=== PATIENT | male | born 1960 | race Caucasian/White ===

== ENCOUNTER 2016-07-01 20:05 | Observation (INO) | payer OTHER ==
--- NOTE | ~2016-07-01 | HP ---
History And Physical [id number] [place]. [address] NAME: ANY ANGELO : 64 STATUS : ADM Torie PAT#: [id number] AGE: 56 ADM/REG DATE : 07/01/16 MR#: [id number] REPORT SERV DATE: 07/02/16 DICTATED BY: DARIO CASAS DATE: 07/01/16 REPORT STATUS : Draft TRANSCRIBED BY: MODL DATE: 07/01/16 DATE OF ADMISSION: 07/01/2016 CHIEF COMPLAINT: Shortness of breath and cough. HISTORY OF PRESENT ILLNESS: This is a 56-year-old male with a history of COPD, recurrent hypercapnic hypoxic respiratory failure in the past, history of kidney injury requiring temporary hemodialysis in the past, chronic alcohol dependence, and tobacco use who presents to the emergency room at [facility] with the above-mentioned complaint. History was obtained from the patient and his son who is at bedside, and reviewing data available on the PROFICIO system. According to Mr. Angelo, he had been in his usual state of health until about June 24, when he initially . He says at that time, he could not breathe at all and called the ambulance and was taken to [facility]. He was evaluated in the emergency room there, given steroids and discharged home with more steroids. He finished his course of steroids at home and was compliant with his medications and supplemental oxygen therapy, but despite all of this he continued to get worse. In the last 24 hours or so, he simply could not breathe, could not even get up or cross the room without getting severely short of breath. He thought he was having a pneumonia and decided to come to the emergency room here to be evaluated. In the emergency room, initial workup revealed he had acute kidney injury. A chest x-ray showed no infiltrates or effusions. There was no cardiomegaly. Hospitalist Service was asked to admit him for further evaluation and treatment and treatment of his COPD with acute exacerbation. In the emergency room, he had received several treatments without any marked improvement. Although when I went there to evaluate the patient, the patient tells me that he had not received a single treatment after he arrived in the emergency room. In the emergency room at the time of my evaluation, he denied any chest pain or palpitations. He had no recent history of falls or loss of consciousness, although he has been feeling dizzy for several days now. He has had a cough which was essentially productive of clear mucoid sputum without hemoptysis, night sweats, or weight loss. He has not had any fevers or chills at home. No history of nausea, vomiting, or diarrhea, dysuria. No history of hematemesis, hematochezia, or hematuria. No other history of recent travel or exposures. PAST MEDICAL HISTORY: Significant for history of COPD, history of recurrent respiratory failures, history of acute kidney injury in the past requiring temporary hemodialysis, essential hypertension, tobacco and alcohol dependence, chronic pain and peripheral vascular disease. SOCIAL HISTORY: He has about 50 pack year history of smoking, although he says he has not smoked in several months now. His son attests to this. He has also quit drinking according to his son and does not use any nowadays. No other history of recreational drug use. He used to be a [employer] by profession. History And Physical [address] [address] NAME: ANY ANGELO : 64 STATUS : ADM Torie PAT#: [id number] AGE: 56 ADM/REG DATE : 07/01/16 MR#: [id number] REPORT SERV DATE: 07/02/16 DICTATED BY: DARIO CASAS DATE: 07/01/16 REPORT STATUS : Draft TRANSCRIBED BY: ANJEL DATE: 07/01/16 FAMILY HISTORY: Noncontributory. MEDICATIONS: At home were reviewed by me in the chart today and reordered by me. REVIEW OF SYSTEMS: As in history of present illness. All other systems were reviewed in detail and are quite unremarkable. PHYSICAL EXAMINATION: GENERAL: This is a very pleasant 56-year-old, in mild distress due to his wheezing. He is alert, awake, oriented to time, place, and person. Pupils are equal, reacting to light and accommodating. External ocular muscles are intact. Membranes are moist and pink. Sclerae are nonicteric. NECK: Supple with no jugular venous distention, lymphadenopathy, or thyromegaly. LUNGS: Clear to auscultation with no wheezes, rubs, or crackles. HEART: Heart sounds are regular with no murmurs, rubs, or gallops. ABDOMEN: Soft, nontender. Bowel sounds are present. EXTREMITIES: Show no cyanosis, clubbing, or edema. NEUROLOGIC: Grossly intact. No focal sensory or motor deficits. Higher functions appear intact. Gait is not examined. VITAL SIGNS: His vital signs today show temperature of 97.7, pulse 118, respirations 26 a minute, blood pressure is 183/96, oxygen saturations are 93%, and breathing 2 L of oxygen via nasal cannula. LABORATORY DATA: Reviewed on the PROFICIO system showed a sodium of 141, potassium 3.8, chloride 106, CO2 of 29, BUN was 25 with a creatinine of 2.0. This is up from his baseline of 0.8 to 0.9. His glucose was 156. Alkaline phosphatase, ALT, and AST were within normal limits. Troponin was not done today. CBC showed a white blood cell count of 12,700; normal hemoglobin, hematocrit, and platelet count. Urinalysis was not done today. Films of the chest x-ray were reviewed by me on the PACS today and interpreted by me. Per my interpretation, there is normal bony architecture with no cardiomegaly. Lung bates were clear with no lobar consolidations or effusions. An EKG was not performed in the ER. IMPRESSION: 1. Shortness of breath. 2. Chronic obstructive pulmonary disease with acute exacerbation. 3. Acute kidney injury. 4. Hypertension. 5. History of acute kidney injury requiring hemodialysis in the past. 6. Tobacco and alcohol use. 7. Chronic pain. 8. Peripheral vascular disease. PLAN: We will admit Mr. Angelo to the Hospitalist Service with defensive monitoring for a 24- History And Physical [address] [address] NAME: ANY ANGELO : 64 STATUS : ADM Torie PAT#: [id number] AGE: 56 ADM/REG DATE : 07/01/16 MR#: [id number] REPORT SERV DATE: 07/02/16 DICTATED BY: DARIO CASAS DATE: 07/01/16 REPORT STATUS : Draft TRANSCRIBED BY: MODL DATE: 07/01/16 hour observation period. We will maximize his bronchodilator treatments, continue supplemental oxygen therapy, start him on inhaled corticosteroids and IV steroids. Meanwhile, we will start him on fluids for volume resuscitation, check his chemistry, electrolytes and replace as needed. The patient needs to quit smoking and drinking. I did bring this up to the patient in the presence of his son and they told me that he has not had any alcohol in a while nor does he smoke anymore. However, we will watch for DTs. He will be placed on unfractionated heparin for DVT prophylaxis while he is here. Please see today's orders for details. I have discussed above plans with the patient and his son. Questions were answered in detail, and they are agreeable to the recommendations. Hospitalist Service will be following him during his stay here. /ANJEL Dario Casas M.D. / [id number] CC: Dario Casas M.D.
--- NOTE | ~2016-07-01 | DS ---
Discharge Summary [facility] [address] [place]. [address] NAME: ANY PERRY : 64 STATUS : DIS Torie PAT#: [id number] AGE: 56 ADM/REG DATE : 07/01/16 MR#: [id number] REPORT SERV DATE: 07/04/16 DICTATED BY: CASSANDRA EASON DATE: 07/03/16 REPORT STATUS : Draft TRANSCRIBED BY: MODL DATE: 07/03/16 ADMISSION DATE: 07/01/2016 DISCHARGE DATE: 07/03/2016 DISCHARGE DIAGNOSIS: 1. Acute chronic obstructive pulmonary disease exacerbation. 2. Shortness of breath and wheeze. 3. Acute kidney injury, resolved. Most recent creatinine 0.82. 4. Sinus tachycardia. 5. History of tobacco and alcohol use. 6. Hypertension. 7. Likely obstructive sleep apnea. DISCHARGE MEDICATIONS: As follows: Gabapentin 300 mg twice a day; lisinopril 20 mg daily; metoprolol 50 mg twice a day; Symbicort 160/4.5 two puffs inhaled twice a day; Spiriva Respimat 2.5 mcg one puff inhaled three times a day; Meloxicam 7.5 mg daily p.r.n. for arthritis but cautioned to not take this pill if ill with examples of nausea, vomiting or poor appetite; Flonase nasal spray p.r.n. for allergies; albuterol nebulizers 4 times a day p.r.n. for shortness of breath; Ventress 7.5/325 one tablet every four hours p.r.n. for pain; prednisone 40 mg daily for 5 more days. HISTORY OF PRESENT ILLNESS: Pleasant, 56-year-old, male who presented with shortness of breath and cough. Please see the initial H and P of Dr. Dario Smith as patient admitted to the Hospitalist Service for further evaluation and treatment. He was started on aggressive nebulizer therapy, IV steroids, and volume resuscitation. Lab work was ordered and followed. PROCEDURES AND IMAGING DURING THIS ADMISSION: Include an echocardiogram which showed an ejection fraction of 45% with mildly decreased left ventricular systolic function. No endocarditis was seen. HOSPITAL COURSE: The patient was seen by myself beginning the following day on 07/02/2016 after his admission. He was still short of breath and still having some wheezing, inspiratory did not feel quite right. He was tachycardic, sinus with heart rates in the 100s to 120s with fluid resuscitation. His creatinine had improved falling from 2.00 to 1.33. His TAHIRA inhibitor had been placed on hold initially. In review of all his medications, I advised decreasing his gabapentin dosage and decreasing his TAHIRA inhibitor dosage going forward given his risk for acute kidney injury as he has been in the hospital prior for acute kidney injury up and to needing short-term dialysis. He spoke of symptoms including waking up in the morning feeling like he is gasping for air and not sleeping very well. I have instructed him when he follows up with Dr. Camejo his systems mgr this week to explore getting outpatient sleep study. With his current treatment plan he began to feel better. On the morning of 07/03/2016, he was no longer wheezing, had slept better and felt better overall. So he was felt safe for discharge home with the above medication regimen and follow up plan with Dr. Camejo, his systems mgr. The patient was in agreement with this plan going forward and so was discharged home. Questions were answered at bedside. Discharge Summary [address] [address] NAME: ANY PERRY : 64 STATUS : DIS Torie PAT#: [id number] AGE: 56 ADM/REG DATE : 07/01/16 MR#: [id number] REPORT SERV DATE: 07/04/16 DICTATED BY: CASSANDRA EASON DATE: 07/03/16 REPORT STATUS : Draft TRANSCRIBED BY: ANJEL DATE: 07/03/16 KATALINA/ANJEL Cassandra Eason NP / [id number] CC: Giorgio Szymanski
[2016-07-01 19:51] LABS: BASOPHILS 0.1 %; BASOPHILS ABSOLUTE 0.01 10/3/uL (0.0-0.16); EOSINOPHILS ABSOLUTE 0.13 10/3/uL (0.0-0.53); ER CBC TAT 0 Hrs 03 Mins; IMMATURE GRANULOCYTES 0.7 %; IMMATURE GRANULOCYTES ABSOLUTE 0.09 10/3/uL (0.0-0.11); LYMPHOCYTES 18.5 %; LYMPHOCYTES ABSOLUTE 2.34 10/3/uL (0.67-4.30); MEAN CORPUS HGB CONC 33.5 g/dL (32.0-36.0); MEAN CORPUSCULAR HEMOGLOB 33.1 pg (26.0-34.0); MEAN CORPUSCULAR VOLUME 98.7 fL (80-100); MEAN PLATELET VOLUME 9.8 fL (9.2-13.0); MONOCYTES 10.1 %; MONOCYTES ABSOLUTE 1.28 10/3/uL (0.21-1.20); NEUTROPHILS 69.6 %; NEUTROPHILS ABSOLUTE 8.83 10/3/uL (2.02-8.40); PLATELET COUNT 234 10/3/uL (150-400); RBC DISTRIBUTION WIDTH 14.7 % (12.0-16.0); WHITE BLOOD CELLS 12.7 10/3/uL (4.5-10.5)
[2016-07-01 19:53] LABS: HEMATOCRIT 46.6 % (40.0-51.0); HEMOGLOBIN 15.6 g/dL (13.6-17.8); MANUAL DIFF NO %; RED CELL COUNT 4.72 10/6/uL (4.7-6.1)
[~2016-07-01 20:05] MED LIST: ADVIL PO; AUG875 PO; BLOOD PRESSURE RX #1 PO; BLOOD PRESSURE RX #2 PO; CARDCD240 PO; DULERA 200 MCG/13 GM INH; FLONASE NAS; LEVAQUIN750 MG PO; LOP50 PO; MUCINEX600 MG PO; NICODERM C21 MG/241 TOP; P20 PO; PERCOCET1 TA4 PO; PRIN20 PO; PROAIR HFA INH; PROVENTSOL INH; PULRESP1 INH; ROXICODONE PO; SPIRIVA INH; SYMBICORT 160/41 INH INH; SYMBICORT INHALER INH; T PO; TESSALON200 MG PO; VENTOLIN HFA INH; Z-PAK PO
[2016-07-01 20:11] LABS: A/G RATIO 1.1 (0.7-1.9); ALBUMIN 4.1 G/DL (3.5-5.0); ALKALINE PHOSPHATASE 92 U/L (45-117); CALCIUM, SERUM 9.2 MG/DL (8.5-10.4); CHLORIDE, SERUM 106 MMOL/L (96-112); CO2 (CARBON DIOXIDE) 29 MMOL/L (24-34); GLOBULIN 3.6 G/DL (2.5-4.1); SGOT(AST) 14 U/L (5-40); SGPT(ALT) 33 U/L (5-65); SODIUM, SERUM 141 MMOL/L (135-148); TOTAL BILIRUBIN 0.5 MG/DL (0-1.2); TOTAL PROTEIN 7.7 G/DL (6.0-8.5)
[2016-07-01 20:12] LABS: BUN (BLOOD UREA NITROGEN) 25 MG/DL (6-23); GFR AFRICAN AMERICAN 43 ML/MIN (>=60); GFR NON AFRICAN AMERICAN 37 ML/MIN (>=60); GLUCOSE, SERUM 156 MG/DL (60-99); POTASSIUM, SERUM 3.8 MMOL/L (3.5-5.3)
[2016-07-01] MEDS ORDERED: SPIRIVA RESPIMAT INH (20:53)
[2016-07-01] MEDS ORDERED: SYMBICORT 160/41 INH INH (20:53)
[2016-07-01] MEDS ORDERED: MOBIC7.5 PO (20:54)
[2016-07-01] MEDS ORDERED: LOP50 PO (20:54)
[2016-07-01] MEDS ORDERED: NEUR300 PO (20:55)
[2016-07-01] MEDS ORDERED: FLONASE NAS (20:56)
[2016-07-01] MEDS ORDERED: ALBUTEROL0.083 % INH (20:56)
[2016-07-01] MEDS ORDERED: NORCO1 TA2 PO (20:58)
[2016-07-02 05:01] LABS: BASOPHILS 0 %; EOSINOPHILS 0 %; HEMATOCRIT 42.3 % (40.0-51.0); HEMOGLOBIN 13.8 g/dL (13.6-17.8); IMMATURE GRANULOCYTES 0.3 %; IMMATURE GRANULOCYTES ABSOLUTE 0.02 10/3/uL (0.0-0.11); LYMPHOCYTES 7.8 %; LYMPHOCYTES ABSOLUTE 0.46 10/3/uL (0.67-4.30); MEAN CORPUS HGB CONC 32.6 g/dL (32.0-36.0); MEAN CORPUSCULAR HEMOGLOB 32.5 pg (26.0-34.0); MEAN CORPUSCULAR VOLUME 99.8 fL (80-100); MEAN PLATELET VOLUME 9.9 fL (9.2-13.0); MONOCYTES 0.5 %; MONOCYTES ABSOLUTE 0.03 10/3/uL (0.21-1.20); NEUTROPHILS 91.4 %; NEUTROPHILS ABSOLUTE 5.35 10/3/uL (2.02-8.40); PLATELET COUNT 206 10/3/uL (150-400); RBC DISTRIBUTION WIDTH 14.8 % (12.0-16.0); RED CELL COUNT 4.24 10/6/uL (4.7-6.1)
[2016-07-02 05:06] LABS: WHITE BLOOD CELLS 5.9 10/3/uL (4.5-10.5)
[2016-07-02 05:07] LABS: MANUAL DIFF NO %
[2016-07-02 05:30] LABS: BUN (BLOOD UREA NITROGEN) 24 MG/DL (6-23); CALCIUM, SERUM 8.6 MG/DL (8.5-10.4); CHLORIDE, SERUM 107 MMOL/L (96-112); CO2 (CARBON DIOXIDE) 27 MMOL/L (24-34); SODIUM, SERUM 142 MMOL/L (135-148)
[2016-07-02 05:33] LABS: CREATININE 1.33 MG/DL (0.70-1.30); GFR AFRICAN AMERICAN 70 ML/MIN (>=60); GFR NON AFRICAN AMERICAN 60 ML/MIN (>=60); GLUCOSE, SERUM 225 MG/DL (60-99); PHOSPHORUS, SERUM 2.2 MG/DL (2.5-4.5); POTASSIUM, SERUM 4.7 MMOL/L (3.5-5.3)
[2016-07-03 03:19] LABS: BASOPHILS 0 %; EOSINOPHILS 0 %; HEMOGLOBIN 12.2 g/dL (13.6-17.8); IMMATURE GRANULOCYTES 0.3 %; IMMATURE GRANULOCYTES ABSOLUTE 0.06 10/3/uL (0.0-0.11); LYMPHOCYTES 3.6 %; LYMPHOCYTES ABSOLUTE 0.62 10/3/uL (0.67-4.30); MEAN CORPUS HGB CONC 32.7 g/dL (32.0-36.0); MEAN CORPUSCULAR HEMOGLOB 32.8 pg (26.0-34.0); MEAN CORPUSCULAR VOLUME 100.3 fL (80-100); MEAN PLATELET VOLUME 9.7 fL (9.2-13.0); MONOCYTES 2.3 %; NEUTROPHILS 93.8 %; NEUTROPHILS ABSOLUTE 16.31 10/3/uL (2.02-8.40); PLATELET COUNT 178 10/3/uL (150-400); RBC DISTRIBUTION WIDTH 14.9 % (12.0-16.0); RED CELL COUNT 3.72 10/6/uL (4.7-6.1)
[2016-07-03 03:20] LABS: HEMATOCRIT 37.3 % (40.0-51.0); MANUAL DIFF NO %; WHITE BLOOD CELLS 17.4 10/3/uL (4.5-10.5)
[2016-07-03 03:30] LABS: BUN (BLOOD UREA NITROGEN) 21 MG/DL (6-23); CALCIUM, SERUM 8.2 MG/DL (8.5-10.4); CHLORIDE, SERUM 111 MMOL/L (96-112); CO2 (CARBON DIOXIDE) 28 MMOL/L (24-34); POTASSIUM, SERUM 4.7 MMOL/L (3.5-5.3); SODIUM, SERUM 146 MMOL/L (135-148)
[2016-07-03 03:32] LABS: CREATININE 0.82 MG/DL (0.70-1.30); GFR AFRICAN AMERICAN 116 ML/MIN (>=60); GFR NON AFRICAN AMERICAN 100 ML/MIN (>=60); GLUCOSE, SERUM 153 MG/DL (60-99)
[2016-07-03] MEDS ORDERED: P20 PO (10:54)
[2016-09-13] MEDS ORDERED: CARTIA XT240 MG/24 PO (07:38)
[2016-09-13] MEDS ORDERED: NORCO1 TA2 PO (07:38)
[2016-09-13] MEDS ORDERED: ALBUTEROL0.083 % INH (07:39)
[2016-09-14] MEDS ORDERED: V5 PO (15:29)
[2016-09-14] MEDS ORDERED: ZOL50 PO (15:31)
[2016-09-14] MEDS ORDERED: PLAVIX PO (15:40)
== END 2016-07-03 13:40 | disposition home or self-care (01) ==
LOC: ER 20:05 → CDU1 21:06 → CDU2 22:38
PROVIDERS: Emergency Medicine; Internal Medicine; Internal Medicine Pulmonary Disease
DX: J44.1 Chronic obstructive pulmonary disease with (acute) exacerbation (principal); R06.02 Shortness of breath; R00.0 Tachycardia, unspecified; N17.9 Acute kidney failure, unspecified; I10 Essential (primary) hypertension; I73.9 Peripheral vascular disease, unspecified; F17.210 Nicotine dependence, cigarettes, uncomplicated; F10.20 Alcohol dependence, uncomplicated; Z79.899 Other long term (current) drug therapy
CPT/HCPCS: 71020; 80048; 80053; 83735; 84100; 85025; 87040; 87070; 87205; 87449; 93005; 94640; 96372; 96374; 96375; 96376; 99285; A9270-GY; G0378; J0360; J2930

== ENCOUNTER 2016-08-19 04:22 | Inpatient (IN) | payer OTHER ==
--- NOTE | ~2016-08-19 | HP ---
History And Physical [address] [id number] [facility] [place]. [address] NAME: ANY PERRY : 64 STATUS : ADM IN [facility]#: [id number] AGE: 56 ADM/REG DATE : 08/19/16 MR#: [id number] REPORT SERV DATE: 08/19/16 DICTATED BY: ELLIOTT DAIGLE DATE: 08/19/16 REPORT STATUS : Draft TRANSCRIBED BY: MODL DATE: 08/19/16 DATE OF ADMISSION: 08/19/2016 CHIEF COMPLAINT: Respiratory failure. HISTORY OF PRESENT ILLNESS: The patient is a 56-year-old white gentleman with a past medical history of COPD with recurrent respiratory failure, hypertension, and chronic pain, who presents to the ER with respiratory failure. The patient is intubated at the time of my interview and not accompanied by family, so history is minimal. Per the ER and EMS notes, the patient was last in the hospital in June for an acute COPD exacerbation, had been doing well since that time. Then, family reports that over the last 12 to 24 hours, the patient had become increasingly short of breath and lethargic. They called EMS. On EMS arrival, the patient had minimal respiratory effort. They brought him to the ER, where he was immediately intubated for hypercapnic respiratory failure and somnolent. He is now sent to the ICU for further management. PAST MEDICAL HISTORY: 1. COPD. 2. Hypertension. 3. Hyperlipidemia. 4. Chronic pain. 5. Peripheral vascular disease. 6. Obstructive sleep apnea. HOME MEDICATIONS: See medication reconciliation form. ALLERGIES: ASPIRIN. SOCIAL HISTORY: Per the chart. [id number] history of smoking. Remote history of alcohol use. No IV drug abuse. FAMILY HISTORY: Per the chart, negative for coronary disease. REVIEW OF SYSTEMS: Unable to obtain secondary to sedation and intubation. PHYSICAL EXAMINATION: VITAL SIGNS: Temperature 96.9, heart rate 91, respiratory rate 24, blood pressure 158/91. GENERAL: Sedated, intubated. HEENT: Pupils equal, round, and reactive to light. ET tube in place. NECK: Supple. Nontender. No lymphadenopathy. No thyromegaly. No jugular venous distention. LUNGS: Decreased breath sounds bilaterally with end-expiratory wheezes throughout. CARDIOVASCULAR: Regular rate and rhythm. No murmurs, rubs, or gallops. ABDOMEN: Soft, nontender, nondistended. Positive bowel sounds. No hepatosplenomegaly. EXTREMITIES: No cyanosis, clubbing, or edema. History And Physical [address] [address] NAME: ANY PERRY : 64 STATUS : ADM IN PAT#: [id number] AGE: 56 ADM/REG DATE : 08/19/16 MR#: [id number] REPORT SERV DATE: 08/19/16 DICTATED BY: ELLIOTT DAIGLE DATE: 08/19/16 REPORT STATUS : Draft TRANSCRIBED BY: ANJEL DATE: 08/19/16 NEURO: Sedated. PSYCH: Unable to assess. LABS AND IMAGING: Blood gas with a pH of 7.02, pCO2 of 99, PO2 of 545. [place] [address]. Metabolic profile remarkable for a potassium of 5.8, AST of 271. Cardiac markers within normal limits. EKG showed no acute ST changes. Lactic acid 6.3, BNP 225. Chest x-ray shows hyperinflated lungs. There was some mild perivascular airspace disease. ASSESSMENT AND PLAN: The patient is a 56-year-old white gentleman with past medical history of chronic obstructive pulmonary disease with a history of recurrent exacerbations, hypertension, chronic pain, who now presents with acute hypercapnic respiratory failure and acute chronic obstructive pulmonary disease exacerbation. For his acute hypercapnic respiratory failure and acute chronic obstructive pulmonary disease, he is currently on the ventilator. I will continue ventilator management. His repeat ABGs show some mild improvement in his hypercapnia. He currently is not adequately sedated with propofol, so I am adding some Precedex and fentanyl drip. Following sedation, we will repeat another gas in an hour to monitor for improvement in his hypercapnia. When he is on the ventilator, we will provide daily awakening trials to assess his mental status and we will attempt weaning trials when medically appropriate. For his acute chronic obstructive pulmonary disease exacerbation, he will be on bronchodilator protocol. We will also place him on IV Solu- Medrol and empiric antibiotics. We will get a sputum culture as well as procalcitonin and blood cultures x2. We will continue his home antihypertensive medications. The patient will be on heparin for DVT prophylaxis and Protonix for GI prophylaxis. The patient is full code. Total critical care time spent on this patient was 35 minutes. YOANNA/MODL Elliott Daigle MD / [id number] CC: Elliott Daigle MD
--- NOTE | ~2016-08-19 | DS ---
Discharge Summary [facility] [address] [place]. [address] NAME: ANY PERRY : 64 STATUS : DIS IN PAT#: [id number] AGE: 56 ADM/REG DATE : 08/19/16 MR#: [id number] REPORT SERV DATE: 08/23/16 DICTATED BY: JR. SANCHEZ WILLIAM JOHN DATE: 08/22/16 REPORT STATUS : Draft TRANSCRIBED BY: MODTay DATE: 08/22/16 ADMISSION DATE: 08/19/2016 DISCHARGE DATE: 08/22/2016 DISCHARGE DIAGNOSES: Include: 1. Acute respiratory failure. 2. Acute exacerbation of chronic obstructive pulmonary disease. 3. Hypertension. 4. Hyperlipidemia. 5. Peripheral vascular disease. 6. Obstructive sleep apnea. OPERATIONS/PROCEDURES AND TREATMENTS: Include: 1. Intubation and mechanical ventilation. 2. Chest x-ray done, 08/19/2016, which showed satisfactory intubation with likely early heart failure symptoms. 3. KUB done, 08/19/2016, which showed satisfactory NG tube placement. 4. Blood cultures x2 done, 08/19/2016, which showed no growth to date. 5. Sputum culture from tracheal aspirate which grew Streptococcus agalactiae as well as Stenotrophomonas maltophilia. 6. MRSA culture that was negative. DISCHARGE MEDICATIONS: Include: 1. Neurontin 300 mg orally twice a day. 2. Lisinopril 20 mg orally daily. 3. Metoprolol 50 mg orally twice a day. 4. Symbicort 160/4.5 two puffs twice a day. 5. Spiriva/Respimat one dose daily. 6. Proventil metered-dose inhaler, one to two puffs q.4-6 hours as needed. 7. Prednisone 40 mg orally daily for three days, then 20 for three days, 10 for three days, then none. 8. Bactrim Double Strength, one tablet orally twice a day for seven days. HOSPITAL COURSE: The patient is a 56-year-old gentleman with a past history of COPD with recurrent respiratory failure, hypertension, chronic pain, who presented to the emergency room with respiratory failure. The patient was intubated in the emergency room. The patient was most recently hospitalized in June 2016 with similar complaints. The patient apparently had increasing shortness of breath over the 12 and 24 hours prior to presentation. On initial exam, his temperature was 96.9, heart rate 91, respiratory rate 24, blood pressure 158/91. He was sedated and intubated at that time. Exam was overall unremarkable, other than decreased breath sounds with end-expiratory wheezes. The pre- intubation blood gas showed a pH of 7.02, pCO2 of 99, pO2 of 545. CBC with white count of 12,500. Lactic acid was 6.3, BNP of 225. The patient was admitted to the intensive care unit. He was maintained on mechanical ventilation. IV steroids and bronchodilators were instituted, and the patient was extubated Discharge Summary [id number] [place]. [address] NAME: ANY PERRY : 64 STATUS : DIS IN PAT#: [id number] AGE: 56 ADM/REG DATE : 08/19/16 MR#: [id number] REPORT SERV DATE: 08/23/16 DICTATED BY: JR. SANCHEZ WILLIAM JOHN DATE: 08/22/16 REPORT STATUS : Draft TRANSCRIBED BY: ANJEL DATE: 08/22/16 on 08/20/2016 without incident. Since extubation, the patient has done quite well and was transferred to the floor. Cultures from the endotracheal tube secretions did grow Stenotrophomonas; therefore, the empiric Levaquin the patient was on was changed to Bactrim to complete a seven-day course. The remainder of the patient's health problems were stable. He will be discharged home. He will follow up with his primary care provider, Jennifer Ceron at [place]. He will also follow up with Dr. Aguila Camejo of Pulmonary Medicine. For discharge exam and laboratory, please see daily progress note. This discharge took 32 minutes for patient encounter, coordination of care, and documentation. DICTATED BY: Law Sanchez Jr, MD WSCOTTY/ANJEL Law Sanchez Jr, MD / [id number] CC: Law Sanchez Jr, MD [place], CRYSTAL
[2016-08-19 03:50] LABS: ALLENS TEST Pos; BE (BASE EXCESS) -8.2 MEQ/L (0 +/- 2.5); CARBOXYHEMOGLOBIN 3.1 % (0-3); HCO3 (ACTUAL BICARBONATE) 25.1 MEQ/L (23-27); HEMOBLOGIN CONTENT 13.9 G/DL (14-18); INSTRUMENT SERIAL # 8087; METHEMOGLOBIN 0.3 % (0-3); MODE CMV; O2 CONTENT 20.3 VOL% (18-24); OPERATOR ID 33449; PCO2 (CO2 TENSION) 99 MMHG (35-45); PO2 (O2 TENSION) 545 MMHG (79-93); SAMPLE Arterial; TIDAL VOLUME 500 ML; pH 7.02 (7.37-7.43)
[~2016-08-19 04:22] MED LIST changes: +ALBUTEROL0.083 % INH; +MOBIC7.5 PO; +NEUR300 PO; +NORCO1 TA2 PO; +SPIRIVA RESPIMAT INH
[2016-08-19 04:28] LABS: BASOPHILS 0.2 %; BASOPHILS ABSOLUTE 0.02 10/3/uL (0.0-0.16); EOSINOPHILS 0.4 %; EOSINOPHILS ABSOLUTE 0.05 10/3/uL (0.0-0.53); ER CBC TAT 0 Hrs 11 Mins; HEMATOCRIT 40.6 % (40.0-51.0); HEMOGLOBIN 12.9 g/dL (13.6-17.8); IMMATURE GRANULOCYTES 1.2 %; IMMATURE GRANULOCYTES ABSOLUTE 0.15 10/3/uL (0.0-0.11); MEAN CORPUS HGB CONC 31.8 g/dL (32.0-36.0); MEAN CORPUSCULAR HEMOGLOB 32.9 pg (26.0-34.0); MEAN PLATELET VOLUME 9.9 fL (9.2-13.0); MONOCYTES 6.4 %; MONOCYTES ABSOLUTE 0.78 10/3/uL (0.21-1.20); NEUTROPHILS 59.8 %; NEUTROPHILS ABSOLUTE 7.27 10/3/uL (2.02-8.40); RBC DISTRIBUTION WIDTH 15.3 % (12.0-16.0); RED CELL COUNT 3.92 10/6/uL (4.7-6.1); WHITE BLOOD CELLS 12.2 10/3/uL (4.5-10.5)
[2016-08-19 04:29] LABS: MANUAL DIFF NO %; MEAN CORPUSCULAR VOLUME 103.6 fL (80-100); PLATELET COUNT 380 10/3/uL (150-400)
[2016-08-19 04:35] LABS: PROTIME (NOT ORD) 12.8 SEC (12.0-14.5)
[2016-08-19 04:42] LABS: PARTIAL THROMBO TIME 21.7 SEC (22.5-37.2)
[2016-08-19 04:43] LABS: ALBUMIN 3.5 G/DL (3.5-5.0); CALCIUM, SERUM 8.2 MG/DL (8.5-10.4); CHEST PAIN PROFILE TAT 0 Hrs 26 Mins; CHLORIDE, SERUM 109 MMOL/L (96-112); CO2 (CARBON DIOXIDE) 26 MMOL/L (24-34); GFR AFRICAN AMERICAN 79 ML/MIN (>=60); GFR NON AFRICAN AMERICAN 68 ML/MIN (>=60); SGPT(ALT) 123 U/L (5-65); SODIUM, SERUM 145 MMOL/L (135-148); TOTAL BILIRUBIN 0.4 MG/DL (0-1.2); TOTAL PROTEIN 6.9 G/DL (6.0-8.5); TROPONIN I <0.02 NG/ML (<0.05)
[2016-08-19 04:44] LABS: ALKALINE PHOSPHATASE 108 U/L (45-117); BUN (BLOOD UREA NITROGEN) 14 MG/DL (6-23); DIRECT BILIRUBIN < 0.1 MG/DL (0.0-0.4); GLUCOSE, SERUM 200 MG/DL (60-99); INDIRECT BILIRUBIN(NOT ORDER) 0.3 MG/DL (0.1-0.9); POTASSIUM, SERUM 5.8 MMOL/L (3.5-5.3); SGOT(AST) 271 U/L (5-40)
[2016-08-19 04:59] LABS: BE (BASE EXCESS) -2.9 MEQ/L (0 +/- 2.5); CARBOXYHEMOGLOBIN 3.1 % (0-3); HCO3 (ACTUAL BICARBONATE) 26.6 MEQ/L (23-27); HEMOBLOGIN CONTENT 12.3 G/DL (14-18); INSTRUMENT SERIAL # 8087; METHEMOGLOBIN 0.2 % (0-3); MODE CMV; O2 CONTENT 15.1 VOL% (18-24); OPERATOR ID 33449; PCO2 (CO2 TENSION) 71 MMHG (35-45); PO2 (O2 TENSION) 68 MMHG (79-93); SAMPLE Arterial; TIDAL VOLUME 500 ML; pH 7.19 (7.37-7.43)
[2016-08-19 08:44] LABS: PHOSPHORUS, SERUM 3.8 MG/DL (2.5-4.5); POTASSIUM, SERUM 4.4 MMOL/L (3.5-5.3)
[2016-08-19 08:49] LABS: LACTATE 1.5 MMOL/L (0.3-2.4)
[2016-08-19 09:21] LABS: ALLENS TEST Pos; BE (BASE EXCESS) 2.2 MEQ/L (0 +/- 2.5); HCO3 (ACTUAL BICARBONATE) 28.1 MEQ/L (23-27); HEMOBLOGIN CONTENT 12.2 G/DL (14-18); INSTRUMENT SERIAL # 35151; METHEMOGLOBIN 0.5 % (0-3); MODE CMV; OPERATOR ID 35784; PCO2 (CO2 TENSION) 49 MMHG (35-45); PO2 (O2 TENSION) 76 MMHG (79-93); SAMPLE Arterial; TIDAL VOLUME 500 ML; pH 7.38 (7.37-7.43)
[2016-08-19 09:54] LABS: PROCALCITONIN 0.15 ng/mL (<0.5)
[2016-08-19 10:33] LABS: BUN (BLOOD UREA NITROGEN) 15 MG/DL (6-23); CALCIUM, SERUM 8.1 MG/DL (8.5-10.4); CHLORIDE, SERUM 111 MMOL/L (96-112); CO2 (CARBON DIOXIDE) 30 MMOL/L (24-34); CREATININE 0.76 MG/DL (0.70-1.30); GFR AFRICAN AMERICAN 120 ML/MIN (>=60); GFR NON AFRICAN AMERICAN 103 ML/MIN (>=60); POTASSIUM, SERUM 4.3 MMOL/L (3.5-5.3); SODIUM, SERUM 146 MMOL/L (135-148)
[2016-08-19 10:34] LABS: GLUCOSE, SERUM 110 MG/DL (60-99)
[2016-08-19] MEDS ORDERED: DILT-XR240 MG PO (16:13)
[2016-08-19] MEDS ORDERED: PROVHFA INH (16:14)
[2016-08-20 04:34] LABS: HEMATOCRIT 39.1 % (40.0-51.0); HEMOGLOBIN 12.8 g/dL (13.6-17.8); MEAN CORPUS HGB CONC 32.7 g/dL (32.0-36.0); MEAN CORPUSCULAR HEMOGLOB 32.8 pg (26.0-34.0); MEAN PLATELET VOLUME 9.7 fL (9.2-13.0); RBC DISTRIBUTION WIDTH 15.4 % (12.0-16.0); WHITE BLOOD CELLS 8.7 10/3/uL (4.5-10.5)
[2016-08-20 04:35] LABS: DIFFERENTIAL ORDERED Y; MEAN CORPUSCULAR VOLUME 100.3 fL (80-100); PLATELET COUNT 242 10/3/uL (150-400)
[2016-08-20 04:48] LABS: CALCIUM, SERUM 8.7 MG/DL (8.5-10.4); CHLORIDE, SERUM 105 MMOL/L (96-112); CO2 (CARBON DIOXIDE) 31 MMOL/L (24-34); CREATININE 1.13 MG/DL (0.70-1.30); GFR AFRICAN AMERICAN 85 ML/MIN (>=60); GFR NON AFRICAN AMERICAN 73 ML/MIN (>=60); SODIUM, SERUM 143 MMOL/L (135-148)
[2016-08-20 04:51] LABS: BUN (BLOOD UREA NITROGEN) 20 MG/DL (6-23); GLUCOSE, SERUM 179 MG/DL (60-99)
[2016-08-20 04:55] LABS: BAND NEUTROPHILS 2 %; LYMPHOCYTES 29 %; LYMPHOCYTES ABSOLUTE (CALC) 2.52 10/3/uL (0.67-4.30); MACROCYTES 1+ (5-10/OIF) (0-5/OIF); MONOCYTES 6 %; MONOCYTES ABSOLUTE (CALC) 0.52 10/3/uL (0.21-1.20); NEUTROPHILS ABSOLUTE (CALC) 5.66 10/3/uL (2.02-8.40); PLATELET ESTIMATE ADQ (ADEQUATE); SEGMENTED NEUTROPHIL (0) 63 %; TOTAL NUCLEATED CELLS 100
[2016-08-20] MEDS ORDERED: ZESTRIL20 MG PO (10:15)
[2016-08-21 04:43] LABS: BASOPHILS 0 %; EOSINOPHILS 0 %; HEMATOCRIT 40.4 % (40.0-51.0); HEMOGLOBIN 12.8 g/dL (13.6-17.8); IMMATURE GRANULOCYTES 0.3 %; IMMATURE GRANULOCYTES ABSOLUTE 0.04 10/3/uL (0.0-0.11); LYMPHOCYTES 8.3 %; LYMPHOCYTES ABSOLUTE 1.06 10/3/uL (0.67-4.30); MANUAL DIFF NO %; MEAN CORPUS HGB CONC 31.7 g/dL (32.0-36.0); MEAN CORPUSCULAR HEMOGLOB 32.5 pg (26.0-34.0); MEAN CORPUSCULAR VOLUME 102.5 fL (80-100); MONOCYTES ABSOLUTE 1.02 10/3/uL (0.21-1.20); NEUTROPHILS 83.4 %; PLATELET COUNT 277 10/3/uL (150-400); RBC DISTRIBUTION WIDTH 15.6 % (12.0-16.0); RED CELL COUNT 3.94 10/6/uL (4.7-6.1); WHITE BLOOD CELLS 12.8 10/3/uL (4.5-10.5)
[2016-08-21 04:59] LABS: ALBUMIN 3.2 G/DL (3.5-5.0); CALCIUM, SERUM 8.8 MG/DL (8.5-10.4); CHLORIDE, SERUM 101 MMOL/L (96-112); CO2 (CARBON DIOXIDE) 30 MMOL/L (24-34); CREATININE 0.81 MG/DL (0.70-1.30); GFR AFRICAN AMERICAN 117 ML/MIN (>=60); GFR NON AFRICAN AMERICAN 101 ML/MIN (>=60); PHOSPHORUS, SERUM 3.3 MG/DL (2.5-4.5); POTASSIUM, SERUM 4.1 MMOL/L (3.5-5.3); SODIUM, SERUM 137 MMOL/L (135-148)
[2016-08-21 05:02] LABS: BUN (BLOOD UREA NITROGEN) 25 MG/DL (6-23); GLUCOSE, SERUM 114 MG/DL (60-99)
[2016-08-22 06:23] LABS: BASOPHILS 0 %; EOSINOPHILS 0.1 %; EOSINOPHILS ABSOLUTE 0.01 10/3/uL (0.0-0.53); HEMATOCRIT 36.9 % (40.0-51.0); HEMOGLOBIN 11.8 g/dL (13.6-17.8); IMMATURE GRANULOCYTES 0.5 %; IMMATURE GRANULOCYTES ABSOLUTE 0.04 10/3/uL (0.0-0.11); LYMPHOCYTES 20.6 %; LYMPHOCYTES ABSOLUTE 1.78 10/3/uL (0.67-4.30); MEAN CORPUSCULAR HEMOGLOB 32.2 pg (26.0-34.0); MEAN CORPUSCULAR VOLUME 100.5 fL (80-100); MEAN PLATELET VOLUME 9.7 fL (9.2-13.0); MONOCYTES 9.3 %; NEUTROPHILS 69.5 %; NEUTROPHILS ABSOLUTE 6.01 10/3/uL (2.02-8.40); PLATELET COUNT 233 10/3/uL (150-400); RED CELL COUNT 3.67 10/6/uL (4.7-6.1); WHITE BLOOD CELLS 8.6 10/3/uL (4.5-10.5)
[2016-08-22 06:29] LABS: MANUAL DIFF NO %
[2016-08-22 06:33] LABS: ALBUMIN 2.8 G/DL (3.5-5.0); CALCIUM, SERUM 8.6 MG/DL (8.5-10.4); CHLORIDE, SERUM 100 MMOL/L (96-112); CO2 (CARBON DIOXIDE) 32 MMOL/L (24-34); CREATININE 0.68 MG/DL (0.70-1.30); GFR AFRICAN AMERICAN 125 ML/MIN (>=60); GFR NON AFRICAN AMERICAN 108 ML/MIN (>=60); GLUCOSE, SERUM 111 MG/DL (60-99); PHOSPHORUS, SERUM 2.7 MG/DL (2.5-4.5); POTASSIUM, SERUM 3.7 MMOL/L (3.5-5.3); SODIUM, SERUM 137 MMOL/L (135-148)
[2016-08-22 06:35] LABS: BUN (BLOOD UREA NITROGEN) 16 MG/DL (6-23)
[2016-08-22] MEDS ORDERED: BACDS PO (15:20)
[2016-08-22] MEDS ORDERED: P10 PO (15:21)
[2016-09-13] MEDS ORDERED: NORCO1 TA2 PO (07:38)
[2016-09-13] MEDS ORDERED: CARTIA XT240 MG/24 PO (07:38)
[2016-09-13] MEDS ORDERED: ALBUTEROL0.083 % INH (07:39)
[2016-09-14] MEDS ORDERED: V5 PO (15:29)
[2016-09-14] MEDS ORDERED: ZOL50 PO (15:31)
[2016-09-14] MEDS ORDERED: PLAVIX PO (15:40)
== END 2016-08-22 16:53 | disposition home or self-care (01) | DRG 208 ==
LOC: ER 04:22 → CCU 04:23 → 7NO 08-21 12:52
PROVIDERS: Emergency Medicine; Internal Medicine; Internal Medicine Critical Care Medicine
PROC: 5A1945Z Respiratory Ventilation, 24-96 Consecutive Hours (ICD-10-PCS; principal; 2016-08-19)
PROC: 0BH17EZ Insertion of Endotracheal Airway into Trachea, Via Natural or Artificial Opening (ICD-10-PCS; 2016-08-19)
DX: J96.22 Acute and chronic respiratory failure with hypercapnia (principal); J44.1 Chronic obstructive pulmonary disease with (acute) exacerbation; I10 Essential (primary) hypertension; G89.29 Other chronic pain; E78.5 Hyperlipidemia, unspecified; I73.9 Peripheral vascular disease, unspecified; G47.33 Obstructive sleep apnea (adult) (pediatric); F41.9 Anxiety disorder, unspecified; Z87.891 Personal history of nicotine dependence; Z98.890 Other specified postprocedural states
CPT/HCPCS: 31500; 31720; 36600; 71010; 74000; 80048; 80069; 80076; 82805; 83605; 83735; 83880; 84100; 84132; 84145; 84484; 85007; 85025; 85027; 85610; 85730; 87040; 87070; 87077; 87186; 87205; 87449; 87641; 93005; 94002; 94003; 94640; 94660; 94770; 96365; 96375; 99291; A9270-GY; C1894; C9113; J0360; J1956; J2920; J3010; J3475